=== PATIENT | female | born 1965 | race Caucasian/White ===

== ENCOUNTER 2017-08-25 06:21 | Day surgery (SDC) | payer OTHER ==
[~2017-08-25] VITALS: Ht 177.8 cm; Wt 104.3 kg
--- NOTE | ~2017-08-25 | OR ---
[facility] [address], [place] [address] Draft DATE OF OPERATION: 08/25/2017 SURGEON: Malou Jackson MD PREOPERATIVE DIAGNOSIS: Colon screening. POSTOPERATIVE DIAGNOSIS: Sigmoid diverticulosis. PROCEDURE: Total colonoscopy to cecum. ANESTHESIA: Intravenous sedation, fentanyl 100 mcg, Versed 7 mg. INDICATION: This 52-year-old white woman is a patient of Dr. Velázquez of [place], [place]. She is referred for screening colonoscopy given her age. She has no symptoms of bleeding, diarrhea, or constipation, and has an unknown family history regarding colon cancer as she is adopted. She has had at least one episode of diverticulitis in the past based on clinical findings. She is admitted to undergo screening colonoscopy. She understands the risks of bleeding, infection, and perforation. FINDINGS: The prep was excellent. Complete colonoscopy was undertaken to the cecum without problem. The ileocecal valve and appendiceal orifice were normal. The remaining colon was normal except for some diverticula of sigmoid colon. DESCRIPTION OF PROCEDURE: The patient was brought to the endoscopy suite and placed in lateral decubitus position given intravenous sedation to the point of slurred speech and nystagmus. Digital rectal examination was normal. Olympus video colonoscope was passed in the rectum and manipulated throughout the colon ultimately intubating the cecum itself. Ileocecal valve and appendiceal orifice were normal. The scope was withdrawn from that point and examination throughout undertaken showing no sign of abnormality until the sigmoid where a few diverticula were noted. There were small. Retroflexed view of the rectum was normal. The scope was removed. The patient was taken to recovery room in good condition. PATIENT NAME: ANA FOSTER OPERATIVE REPORT DATE OF : 69 REPORT #: [id number] PHYSICIAN: MALOU JACKSON MD PCP: DAVID VELÁZQUEZ MD REPORT IS CONFIDENTIAL AND NOT TO BE RELEASED WITHOUT AUTHORIZATION [facility] [address], [place] [address] Draft CONCLUDING DIAGNOSIS: Normal colon other than diverticulosis. PLAN: Recommend high-fiber diet and repeat colonoscopy in 10 years sooner if clinically indicated of course. MD DARIANA Kay/NORIS /[id number] cc: David Velázquez MD Copies: DAVID VELÁZQUEZ MD ~ PATIENT NAME: ANA FOSTER OPERATIVE REPORT DATE OF : 69 REPORT #: [id number] PHYSICIAN: MALOU JACKSON MD PCP: DAVID VELÁZQUEZ MD REPORT IS CONFIDENTIAL AND NOT TO BE RELEASED WITHOUT AUTHORIZATION
[~2017-08-25 06:21] MED LIST: ACYCLOVIR400 MG PO; GUMMI BEAR MUL1 EACH PO
--- NOTE | 2017-08-25 08:18 | NUR ---
08/25/[address] AT BEDSIDE REVIEWING PROCEDURE WITH PT. PT DENIES NAUSEA OR PAIN.
== END 2017-08-25 08:37 | disposition home or self-care (01) ==
LOC: OPS 06:21 → DS 06:21 → OPS 06:45
PROVIDERS: Surgery
PROC: 0DJD8ZZ Inspection of Lower Intestinal Tract, Via Natural or Artificial Opening Endoscopic (ICD-10-PCS; principal; 2017-08-25 06:45)
DX: Z12.11 Encounter for screening for malignant neoplasm of colon (principal); K57.30 Diverticulosis of large intestine without perforation or abscess without bleeding; N93.8 Other specified abnormal uterine and vaginal bleeding; Z88.0 Allergy status to penicillin; Z87.891 Personal history of nicotine dependence
CPT/HCPCS: 99153; G0500; J2250; J3010; J7120